=== PATIENT | male | born 1990 | race Caucasian/White ===

== ENCOUNTER → 2021-11-25 10:22 | Outpatient (CLI) | payer OTHER, SELFPAY ==
--- NOTE | ~2021-11-25 | CT_ITS ---
EXAMINATION: CT abdomen pelvis wo con DATE: 11/25/2021 10:35 INDICATION: Left flank and groin pain. Microscopic hematuria. TECHNIQUE: Computed tomography (CT) of the abdomen and pelvis was performed without intravenous contr ast. Automated exposure control and iterative reconstruction technique were employed. Exam dose: 458 .69 mGy-cm total exam DLP. COMPARISON: None. FINDINGS: The lung bases are clear of infiltrate or consolidation. Normal heart size. No pericardial or pleural effusion. 5.6 mm hypoattenuating lesion of the right hepatic lobe, likely a small cyst. Otherwise the liver, gallbladder, spleen, pancreas and bile ducts and pancreatic duct are unremarkabl e. Normal morphology of the adrenal glands. There is a 3 mm left ureter pelvic junction calculus, without hydronephrosis, with minimal left perin ephric stranding. No other urinary tract calculus. The urinary bladder is unremarkable. Normal caliber of the abdominal aorta. No intraperitoneal or retroperitoneal or pelvic mass lesion or adenopathy or ascites. The urinary bladder, prostate gland and seminal vesicles are unremarkable. Bilateral fat-containing inguinal hernias, mild, larger on the left. Included skeletal structures are unremarkable. IMPRESSION: 3 mm left ureteropelvic junction calculus with minimal left perinephric stranding, no hy dronephrosis Probable 5.6 mm right hepatic cyst Normal appendix Bilateral fat-containing hernias, left greater than right Reviewed, dictated and finalized at [facility]. Reviewed, dictated and finalized at location A. SPORTATION ASSOCIATE IMPRESSION: 3 mm left ureteropelvic junction calculus with minimal left perine phric stranding, no hydronephrosis Probable 5.6 mm right hepatic cyst Normal appendix Bilateral fat-containing hernias, left greater than right
== END ==
PROVIDERS: Visit Provider Family Medicine
DX: R31.9 Hematuria, unspecified (principal); R10.9 Unspecified abdominal pain; K44.9 Diaphragmatic hernia without obstruction or gangrene
CPT/HCPCS: 74176

== ENCOUNTER 2021-12-03 05:46 | Emergency (ER) | payer OTHER, SELFPAY ==
--- NOTE | ~2021-12-03 | XR_ITS ---
EXAMINATION: XR abdomen/kub 1V INDICATION: Left flank pain TECHNIQUE: Supine views of the abdomen were obtained on 2 radiographs. COMPARISON: CT, 11/25/2021 FINDINGS: There is a 3 mm calcification in the left pelvis at the expected location of the distal lef t ureter. A phlebolith is noted in the right pelvis. The bowel gas pattern is normal. The visualized lung bases are clear. IMPRESSION: 1. 3 mm left pelvic calcification, consistent with interval migration of the previously described lef t UPJ stone to the distal left ureter. Reviewed, dictated and finalized at location [facility]. E MANAGER IMPRESSION: 1. 3 mm left pelvic calcification, consistent with interval migration of the pr eviously described left UPJ stone to the distal left ureter.
[2021-12-03 05:54] VITALS: BP 150/95; PULSE 84; RESP 18; TEMP 36.7; O2SAT 96
--- NOTE | 2021-12-03 06:07 | ED.GENADULT ---
HPI - General Adult General Chief complaint: Abdominal Pain Stated complaint: flank pain Time Seen by Provider: 12/03/21 05:53 Source: RN notes reviewed History of Present Illness HPI narrative: Patient presents emergency department from home for left flank pain. Patient states that pain is located over the left flank and radiates around the left side the abdomen described as sharp and stabbing in nature. States that pain began proximally 1 week ago he was seen by his PCP and had a CT scan showing left-sided kidney stone he states he is was given hydrocodone but continues to have pain most of hydrocodone several hours ago he denies any fevers or chills notes some intermittent nausea denies any diarrhea Related Data Allergies Allergy/AdvReac Type Severity Reaction Status Date / Time No Known Allergies Allergy Verified 11/20/21 10:01 Review of Systems Review of Systems: Gen.: Denies fevers or chills ENT: Denies congestion Respiratory: Denies shortness of breath or cough CV: Denies chest pain or palpitations GI: See HPI denies burning, urgency, frequency or hematuria Musculoskeletal: Denies back pain or muscle pain Neuro: Denies numbness, tingling, weakness or focal weakness Skin: Denies rash Except as documented, all other systems reviewed and negative [facility] Past Medical History Medical History Ureteral calculi Family History Family History Mother Family history of hypercholesterolemia Depression Family history of glaucoma Family history of cardiovascular disease Father Hypertension Social History Social History Smoking status: Never smoker Alcohol intake: current Exam Narrative: APPEARANCE: No acute distress, nontoxic, resting in bed EYES: EOMI HEENT: Normocephalic, atraumatic, OMM RESPIRATORY: No respiratory distress Clear to auscultation bilaterally with no rhonchi wheezing or rales. CARDIOVASCULAR: Regular rate and rhythm without murmurs rubs or gallops. ABDOMINAL: Soft, nontender, nondistended, no rebound or guarding left flank tenderness MUSCULOSKELETAl: Moves all extremities. No clubbing, cyanosis or edema. NEURO: Awake and alert. Following commands, speech normal, no focal deficits SKIN:: Warm, dry. No rashes lesions or abrasions PSYCHIATRIC: Normal affect/mood, Course Course Emergency Course: Reviewed old records Discussed with Dr. Dimas presentation work-up at this time agrees with plan for discharge to follow-up as an outpatient Discussed with patient results of workup and diagnosis. Discussed need for follow-up with primary care, proper use of medication, and reasons to return to the emergency department. Patient understands and agrees to current treatment plan patient has Toradol and Worden at home Vital Signs Vital signs: Vital Signs Temperature 98.0 F 12/03/21 05:54 Pulse Rate 84 12/03/21 05:54 Respiratory Rate 18 12/03/21 05:54 Blood Pressure 150/95 H 12/03/21 05:54 Pulse Oximetry 96 12/03/21 05:54 Temperature 98.0 F 12/03/21 05:54 Pulse Rate 71 12/03/21 07:03 Respiratory Rate 18 12/03/21 07:03 Blood Pressure 135/94 H 12/03/21 07:03 Pulse Oximetry 99 12/03/21 07:03 Medical Decision Making Vital Signs Vital Signs: Vital Signs Temperature 98.0 F 12/03/21 05:54 Pulse Rate 84 12/03/21 05:54 Respiratory Rate 18 12/03/21 05:54 Blood Pressure 150/95 H 12/03/21 05:54 Pulse Oximetry 96 12/03/21 05:54 Temperature 98.0 F 12/03/21 05:54 Pulse Rate 71 12/03/21 07:03 Respiratory Rate 18 12/03/21 07:03 Blood Pressure 135/94 H 12/03/21 07:03 Pulse Oximetry 99 12/03/21 07:03 Lab Data Result diagrams: 12/03/21 06:07 12/03/21 06:07 Labs: Lab Results 12/03/21 12/03/21 12/03/21 Range/Units 06:07 06:07 06:20 WBC 6.
[2021-12-03 06:12] LABS: Basophils Absolute Auto 0.1 K/mm3 (0.0-0.1); Basophils Percent Auto 0.8 % (0.2-1.2); Eosinophils Absolute Auto 0.1 K/mm3 (0-0.3); Eosinophils Percent Auto 2.3 % (0-4.4); Hematocrit 41.6 % (42.0-52.0); Hemoglobin 14.5 g/dL (14.0-18.0); Immature Granulocyte Absolute 0.02 K/mm3 (0.00-0.031); Immature Granulocyte Percent A 0.3 % (0-0.5); Lymphocytes Absolute Auto 1.76 K/mm3 (0.9-3.2); Lymphocytes Percent Auto 28.7 % (18.3-44.2); Mean Corpuscular HGB Conc 34.9 g/dl (32-36); Mean Corpuscular Volume 89.1 fl (80-100); Mean Platelet Volume 9.6 fl (7.4-10.4); Monocytes Absolute Auto 0.5 K/mm3 (0.1-0.6); Monocytes Percent Auto 7.3 % (2.6-8.5); Neutrophils Absolute Auto 3.7 K/mm3 (1.3-6.7); Neutrophils Percent Auto 60.6 % (45.5-73.1); Platelet Count Result 227 k/mm3 (150-375); Red Blood Count 4.67 M/mm3 (4.6-6.20); Red Cell Distribution Width 12.4 % (11.5-14.5); White Blood Count 6.1 K/mm3 (4.5-10.0)
[2021-12-03] MEDS: SODIUM CHLORIDE 0.9% IV 1,000 ML 999 ML IV CONT (06:18)
[2021-12-03] MEDS: KETOROLAC 30 MG/ML VIAL (*BKC) IV PUSH (06:18)
[2021-12-03 06:43] LABS: Alanine Aminotransferase 29 U/L (4-50); Albumin Level 4.3 g/dL (3.5-5.1); Alkaline Phosphatase 55 U/L (38-126); Anion Gap 11 mmol/L (8-16); Aspartate Amino Transferase 24 U/L (17-59); Bilirubin,Total 0.7 mg/dL (0.2-1.3); Blood Urea Nitrogen 13 mg/dL (9-20); Calcium 9.6 mg/dL (8.4-10.2); Carbon Dioxide 24 mmol/L (22-30); Chloride 104 mmol/L (98-107); Estimated CRCL calculation 109 ml/min; Estimated Glomerular Filt Rate > 60; Glucose 104 mg/dL (65-110); Lipase 101 U/L (23-300); Potassium 4.2 mmol/L (3.4-5.0); Sodium 139 mmol/L (137-145)
[2021-12-03 06:47] LABS: Add Urine Microscopic? NO; Appearance Urine Clear (Clear); Bilirubin Urine Negative (Negative); Blood Urine Negative (Negative); Color Urine Yellow (Yellow); Glucose Urine UA Negative (Negative); Ketones Urine Negative (Negative); Leukocyte Esterase Ur Negative LEU/UL (Negative); Nitrate Urine Negative (Negative); Protein Urine Negative (Negative); Specific Grav Ur 1.017 (1.001-1.035); Urobilinogen Urine Negative mg/dL (<2.0)
[2021-12-03 07:03] VITALS: BP 135/94; PULSE 71; RESP 18; O2SAT 99
[2021-12-03] MEDS: TAMSULOSIN HCL 0.4 MG CAPSULE PO (07:27)
[2021-12-03 07:30] VITALS: BP 142/101; PULSE 80; RESP 16; O2SAT 97
== END 2021-12-03 07:30 | disposition home or self-care (01) ==
PROVIDERS: Emergency Provider Emergency Medicine; PCP Family Medicine
DX: N20.0 Calculus of kidney (principal)
CPT/HCPCS: 36415; 74018; 80053; 81003; 83690; 85025; 96361; 96374; 99284; A9270; J1885; J7030

== ENCOUNTER → 2021-12-11 14:12 | Outpatient (CLI) | payer OTHER, SELFPAY ==
--- NOTE | ~2021-12-11 | US_ITS ---
US renal BI 12/11/2021 14:29 Procedure: Realtime transabdominal ultrasound of the kidneys and bladder. Indication: Ureteral stone Comparison: No prior studies for comparison. Findings: Renal echotexture is normal bilaterally without hydronephrosis, contour deforming mass or r enal calculus. The right kidney measures 11.5 cm and left kidney measures 11.6 cm. Bladder within no rmal limits. Impression: 1: Unremarkable renal ultrasound. No stones, masses or hydronephrosis. Reviewed, dictated and finalized at location B. SHEAR OPERATOR Impression: 1: Unremarkable renal ultrasound. No stones, masses or hydronephrosis.
== END ==
PROVIDERS: PCP Family Medicine; Visit Provider Family Medicine
DX: N20.1 Calculus of ureter (principal)
CPT/HCPCS: 76775

== ENCOUNTER 2021-12-17 07:08 | Outpatient (CLI) | payer OTHER, SELFPAY ==
[2021-12-17 08:20] LABS: Basophils Absolute Auto 0.1 K/mm3 (0.0-0.1); Basophils Percent Auto 0.9 % (0.2-1.2); Eosinophils Absolute Auto 0.2 K/mm3 (0-0.3); Eosinophils Percent Auto 2.3 % (0-4.4); Hematocrit 42.4 % (42.0-52.0); Hemoglobin 14.7 g/dL (14.0-18.0); Immature Granulocyte Absolute 0.02 K/mm3 (0.00-0.031); Immature Granulocyte Percent A 0.3 % (0-0.5); Lymphocytes Absolute Auto 2.27 K/mm3 (0.9-3.2); Lymphocytes Percent Auto 34.8 % (18.3-44.2); Mean Corpuscular HGB Conc 34.7 g/dl (32-36); Mean Corpuscular Hemoglobin 31.2 pg (26-34); Mean Platelet Volume 9.6 fl (7.4-10.4); Monocytes Absolute Auto 0.4 K/mm3 (0.1-0.6); Monocytes Percent Auto 6.1 % (2.6-8.5); Neutrophils Absolute Auto 3.6 K/mm3 (1.3-6.7); Neutrophils Percent Auto 55.6 % (45.5-73.1); Platelet Count Result 277 k/mm3 (150-375); Red Blood Count 4.71 M/mm3 (4.6-6.20); White Blood Count 6.5 K/mm3 (4.5-10.0)
[2021-12-17 10:28] LABS: Alanine Aminotransferase 33 U/L (4-50); Albumin Level 4.6 g/dL (3.5-5.1); Alkaline Phosphatase 66 U/L (38-126); Anion Gap 10 mmol/L (8-16); Aspartate Amino Transferase 27 U/L (17-59); Bilirubin,Total 0.5 mg/dL (0.2-1.3); Blood Urea Nitrogen 14 mg/dL (9-20); Calcium 9.1 mg/dL (8.4-10.2); Carbon Dioxide 25 mmol/L (22-30); Chloride 104 mmol/L (98-107); Cholesterol 169 mg/dL (0-200); Estimated Glomerular Filt Rate > 60; Glucose 90 mg/dL (65-110); HDL Direct 40 mg/dL; Sodium 139 mmol/L (137-145); Triglycerides 174 mg/dL (<150)
[2021-12-17 10:40] LABS: LDL Cholesterol Direct 104 mg/dL
== END 2021-12-17 07:09 | disposition home or self-care (01) ==
PROVIDERS: PCP Family Medicine; Visit Provider Family Medicine
DX: Z00.00 Encounter for general adult medical examination without abnormal findings (principal); N20.1 Calculus of ureter
CPT/HCPCS: 36415; 80053; 80061; 85025

== ENCOUNTER 2022-01-01 02:24 | Emergency (ER) | payer OTHER, SELFPAY ==
--- NOTE | ~2022-01-01 | CT_ITS ---
EXAMINATION: CT abdomen pelvis wo con DATE: 01/01/2022 06:01 INDICATION: Left flank pain TECHNIQUE: Computed tomography (CT) of the abdomen and pelvis was performed without intravenous contr ast. Automated exposure control and iterative reconstruction technique were employed. The dose-length product was 528.39 mGy-cm. COMPARISON: None FINDINGS: Lung bases are clear. Heart size is normal. No pericardial or pleural effusion. Diffuse hepatic steat osis. Gallbladder, pancreas, spleen, bilateral adrenal glands and right kidney are normal. 2-3 mm obs tructing distal left ureteral stone approximately 1.5 cm from the ureterovesicular junction with mild left hydroureteronephrosis. No other urolithiasis on either the left or right. Bladder is decompress ed. Bowels including the appendix are normal. No pathologically enlarged abdominal or pelvic lymphade nopathy. Small right and moderate-sized left fat-containing inguinal hernias. No free intraperitoneal gas or fluid. Mild bilateral hip osteoarthritis. Bone island at the right pubic body. IMPRESSION: 1. 2-3 mm distal left ureteral stone with mild left hydroureteronephrosis. 2. Diffuse hepatic steatosis. Reviewed, dictated and finalized at location A.
[2022-01-01 05:24] LABS: Basophils Percent Auto 0.4 % (0.2-1.2); Eosinophils Absolute Auto 0.1 K/mm3 (0-0.3); Hematocrit 40.8 % (42.0-52.0); Hemoglobin 14.3 g/dL (14.0-18.0); Immature Granulocyte Absolute 0.04 K/mm3 (0.00-0.031); Immature Granulocyte Percent A 0.4 % (0-0.5); Lymphocytes Absolute Auto 1.79 K/mm3 (0.9-3.2); Lymphocytes Percent Auto 16.6 % (18.3-44.2); Mean Corpuscular Hemoglobin 31.3 pg (26-34); Mean Corpuscular Volume 89.3 fl (80-100); Mean Platelet Volume 10.3 fl (7.4-10.4); Monocytes Absolute Auto 0.8 K/mm3 (0.1-0.6); Monocytes Percent Auto 7.8 % (2.6-8.5); Neutrophils Absolute Auto 7.9 K/mm3 (1.3-6.7); Neutrophils Percent Auto 73.8 % (45.5-73.1); Platelet Count Result 195 k/mm3 (150-375); Red Blood Count 4.57 M/mm3 (4.6-6.20); Red Cell Distribution Width 11.9 % (11.5-14.5); White Blood Count 10.8 K/mm3 (4.5-10.0)
[2022-01-01 05:25] LABS: Add Urine Microscopic? YES; Appearance Urine Clear (Clear); Bilirubin Urine Negative (Negative); Blood Urine Negative (Negative); Color Urine Yellow (Yellow); Glucose Urine UA Negative (Negative); Ketones Urine Negative (Negative); Leukocyte Esterase Ur Negative LEU/UL (NEGATIVE); Mucus Urine Rare /lpf; Nitrate Urine Negative (Negative); Protein Urine Negative (Negative); Specific Grav Ur 1.029 (1.001-1.035); Urobilinogen Urine Negative mg/dL (<2.0); WBC Urine 0-3 /hpf (0-3)
[2022-01-01 05:52] LABS: Alanine Aminotransferase 29 U/L (4-50); Albumin Level 4.4 g/dL (3.5-5.1); Alkaline Phosphatase 69 U/L (38-126); Anion Gap 9 mmol/L (8-16); Aspartate Amino Transferase 26 U/L (17-59); Bilirubin,Total 0.5 mg/dL (0.2-1.3); Blood Urea Nitrogen 17 mg/dL (9-20); Calcium 8.8 mg/dL (8.4-10.2); Carbon Dioxide 26 mmol/L (22-30); Chloride 103 mmol/L (98-107); Estimated Glomerular Filt Rate > 60; Glucose 116 mg/dL (65-110); Potassium 3.5 mmol/L (3.4-5.0); Sodium 138 mmol/L (137-145)
== END 2022-01-01 06:43 | disposition home or self-care (01) ==
PROVIDERS: PCP Family Medicine
DX: N13.2 Hydronephrosis with renal and ureteral calculous obstruction (principal); K76.0 Fatty (change of) liver, not elsewhere classified
CPT/HCPCS: 36415; 74176; 80053; 81001; 85025; 86803; 96374; 96375; 99284; A9270; J1170; J2405

== ENCOUNTER 2022-01-04 08:48 | Emergency (ER) | payer OTHER, SELFPAY ==
--- NOTE | ~2022-01-04 | XR_ITS ---
XR abdomen/kub 1V 01/04/2022 09:23 INDICATION: Left flank pain TECHNIQUE: KUB COMPARISON: CT dated 01/01/2022Z FINDINGS: Bowel gas pattern is normal. There is no evidence of free air, mass, organomegaly, ascites or obstruction. There is a 3 mm left ureteral stone near the UVJ without significant change to posit ion allowing for differences of technique. The bones appear intact. IMPRESSION: 1: No significant change to position of distal left ureteral stone measuring approximately 3 mm. Reviewed, dictated and finalized at location A. IMPRESSION: 1: No significant change to position of distal left ureteral stone measuring ap proximately 3 mm.
[2022-01-04 08:55] VITALS: BP 153/99; PULSE 98; RESP 16; TEMP 36.4; O2SAT 99
[2022-01-04 09:05] VITALS: BP 153/99; PULSE 98; RESP 16; TEMP 36.4; O2SAT 99
--- NOTE | 2022-01-04 09:24 | ED.MALEGU ---
HPI - Male Genitourinary General Chief complaint: Urogenital-Male Stated complaint: kidney stone Time Seen by Provider: 01/04/22 09:01 Source: patient Mode of arrival: ambulatory Limitations: no limitations History of Present Illness HPI Narrative: 31 year old male presents today with complaints of left flank pain that he is not able to control at home. Currently pain is tolerable. Patient seen here on 01/01 and diagnosed with a kidney stone. Patient has been taking Ararat at home and states when he has the pain it only works for about 1 hour. He is taking flomax as prescribed. He has been unable to follow up with urology at this point. Denies urinary symptoms, testicular pain, or seeing blood in her urine. Related Data Allergies Allergy/AdvReac Type Severity Reaction Status Date / Time No Known Allergies Allergy Verified 12/17/21 08:59 Review of Systems Review of Systems: CONSTITUTIONAL: Denies fever, chills, or sweats. EYES: Denies visual changes, redness, or discharge. ENT: Denies rhinorrhea, congestion, sore throat, or otalgia. CARDIOVASCULAR: Denies chest pain, palpitations, or edema. RESPIRATORY: Denies cough or dyspnea. GASTROINTESTINAL: Denies abdominal pain, nausea, vomiting, or diarrhea. GENITOURINARY: Denies dysuria or hematuria. SKIN: Denies rash or itching. MUSCULOSKELETAL: Flank pain. Denies joint pain or myalgia. NEUROLOGIC: Denies headache, numbness, dizziness, or weakness. PSYCHIATRIC: Denies anxiety or depression. PMFSH Past Medical History Medical History Contact with and (suspected) exposure to lead (04/12/18) Ureteral calculi Family History Family History Mother Family history of hypercholesterolemia Depression Family history of glaucoma Family history of cardiovascular disease Father Hypertension Social History Social History Smoking status: Never smoker Second hand tobacco smoke exposure: No Alcohol intake: current Substance use: never Exam Narrative: GENERAL: Well-appearing, well-nourished, and in no acute distress. HEAD: Normocephalic, atraumatic. EYES: PERRLA and EOMI. ENT: Nares clear, no rhinorrhea or epistaxis. Mucous membranes moist. Oropharynx without tonsillar hypertrophy exudate or other lesions. Bilateral TMs pearly dumont nonbulging NECK: Supple. No adenopathy or masses. No carotid bruits or JVD CHEST: Clear to auscultation. No respiratory distress. No wheezes rales or rhonchi HEART: Regular rate and rhythm. No murmur heard. Normal peripheral pulses. ABDOMEN: Soft, nontender, nondistended, normal active bowel sounds. EXTREMITIES: Normal range of motion. No edema. SKIN: Warm, dry, no rash. NEURO: No focal deficits. Alert and oriented x3. PSYCH: Normal mood and affect. Course Course Emergency Course: Urology consulted. Mae HAM add Toradol. Will follow up with patient. Plan for possible surgery Tuesday or Tuesday. Okay for discharge home. Patient updated on plan of care. In agreement with plan. Information for urology given to patient and instructed to call tomorrow if he has not been notified by them. Vital Signs Vital signs: Vital Signs Temperature 36.4 C 01/04/22 08:55 Pulse Rate 98 01/04/22 08:55 Respiratory Rate 16 01/04/22 08:55 Blood Pressure 153/99 H 01/04/22 08:55 Pulse Oximetry 99 01/04/22 08:55 Temperature 36.4 C 01/04/22 09:05 Pulse Rate 78 01/04/22 12:32 Respiratory Rate 15 01/04/22 12:32 Blood Pressure 136/90 01/04/22 12:32 Pulse Oximetry 100 01/04/22 12:32 MDM - Male Genitourinary MDM Narrative Medical decision making narrative: HPI as above. Patient without any infection to urine. Pain at discharge tolerable. Patient will be discharged home with plan follow-up with urology or return new or worsening symptoms. Shaka
[2022-01-04] MEDS: SODIUM CHLORIDE 0.9% IV 1,000 ML 999 ML IV CONT (09:35)
[2022-01-04 09:50] LABS: Basophils Absolute Auto 0.1 K/mm3 (0.0-0.1); Basophils Percent Auto 0.6 % (0.2-1.2); Eosinophils Absolute Auto 0.1 K/mm3 (0-0.3); Eosinophils Percent Auto 0.6 % (0-4.4); Hematocrit 40.7 % (42.0-52.0); Hemoglobin 14.5 g/dL (14.0-18.0); Immature Granulocyte Absolute 0.03 K/mm3 (0.00-0.031); Immature Granulocyte Percent A 0.4 % (0-0.5); Lymphocytes Absolute Auto 1.51 K/mm3 (0.9-3.2); Lymphocytes Percent Auto 18.3 % (18.3-44.2); Mean Corpuscular HGB Conc 35.6 g/dl (32-36); Mean Corpuscular Hemoglobin 31.1 pg (26-34); Mean Corpuscular Volume 87.3 fl (80-100); Mean Platelet Volume 9.9 fl (7.4-10.4); Monocytes Absolute Auto 0.8 K/mm3 (0.1-0.6); Monocytes Percent Auto 9.2 % (2.6-8.5); Neutrophils Absolute Auto 5.8 K/mm3 (1.3-6.7); Neutrophils Percent Auto 70.9 % (45.5-73.1); Platelet Count Result 214 k/mm3 (150-375); Red Blood Count 4.66 M/mm3 (4.6-6.20); Red Cell Distribution Width 11.8 % (11.5-14.5); White Blood Count 8.2 K/mm3 (4.5-10.0)
[2022-01-04 09:51] LABS: Add Urine Microscopic? YES; Appearance Urine Clear (Clear); Bilirubin Urine Negative (Negative); Blood Urine Negative (Negative); Color Urine Yellow (Yellow); Glucose Urine UA Negative (Negative); Ketones Urine 2+ mg/dL (Negative); Leukocyte Esterase Ur Negative LEU/UL (Negative); Mucus Urine Rare /lpf; Nitrate Urine Negative (Negative); Protein Urine Negative (Negative); RBC Urine 0-2 /hpf (0-2); Specific Grav Ur 1.024 (1.001-1.035); Urobilinogen Urine Negative mg/dL (<2.0); WBC Urine 0-3 /hpf
[2022-01-04 10:03] LABS: Alanine Aminotransferase 19 U/L (4-50); Albumin Level 4.6 g/dL (3.5-5.1); Alkaline Phosphatase 73 U/L (38-126); Anion Gap 9 mmol/L (8-16); Aspartate Amino Transferase 23 U/L (17-59); Bilirubin,Total 0.9 mg/dL (0.2-1.3); Blood Urea Nitrogen 11 mg/dL (9-20); Calcium 9.4 mg/dL (8.4-10.2); Carbon Dioxide 30 mmol/L (22-30); Chloride 96 mmol/L (98-107); Estimated CRCL calculation 74 ml/min; Estimated Glomerular Filt Rate > 60; Glucose 103 mg/dL (65-110); Potassium 3.7 mmol/L (3.4-5.0); Sodium 135 mmol/L (137-145)
[2022-01-04] MEDS: MORPHINE SULFATE (*CRX) 2 MG/ML INJ IV PUSH (10:42)
[2022-01-04 11:10] VITALS: BP 148/97; PULSE 84; RESP 18; O2SAT 100
[2022-01-04] MEDS: KETOROLAC 30 MG/ML VIAL (*BKC) IV PUSH (11:58)
[2022-01-04 12:32] VITALS: BP 136/90; PULSE 78; RESP 15; O2SAT 100
== END 2022-01-04 12:43 | disposition home or self-care (01) ==
PROVIDERS: Emergency Provider Nurse Practitioner Family; PCP Family Medicine
DX: N20.1 Calculus of ureter (principal); Z87.442 Personal history of urinary calculi
CPT/HCPCS: 36415; 74018; 80053; 81001; 85025; 87086; 96361; 96374; 96375; 99284; J1885; J2270; J7030

== ENCOUNTER → 2022-01-06 07:38 | Outpatient (CLI) | payer OTHER, SELFPAY ==
[2022-01-06 11:51] LABS: SARS-CoV-2 RNA PCR Negative
== END ==
PROVIDERS: PCP Family Medicine; Visit Provider Urology
DX: Z01.812 Encounter for preprocedural laboratory examination (principal); Z20.822 Contact with and (suspected) exposure to COVID-19
CPT/HCPCS: C9803; U0003; U0005

== ENCOUNTER 2022-01-07 00:59 | Day surgery (SDC) | payer OTHER, SELFPAY ==
[2022-01-06 09:20] VITALS: BMI 28.1
--- NOTE | 2022-01-06 09:26 | PC.NURSE ---
Report to the Outpatient Waiting Room, entrance under the green pavilion located off [facility], at time 1015 on date 01/07/22. OR Time: 1215. - You and your visitor will be asked a series of questions to screen for COVID 19 for your protection. - A mask is required within the hospital. One visitor will be allowed to accompany the patient into the hospital. Patients visitor will be instructed to remain with patient at all times or leave the building. We will allow the visitor to come back to the postoperative area when patient is ready. Preoperative COVID Testing Requirements: COVID TEST 01/06 AT 0830 No COVID Test needed if: (proof is required; if not received patient will have Rapid Test prior to entry) - Patient has received COVID Vaccine at least 14 days prior to procedure date or - Patient has positive COVID test result within last 90 days of surgery date. COVID Test needed if above criteria is not met If not COVID vaccinated a COVID test must be conducted within 72 hours of surgery and patient is asked to isolate self from time of testing until procedure. You will go to the [facility] for your COVID testing. The [facility] is located at the corner of [address] [facility]. You will only be called if COVID results are positive and your surgeon may reschedule your elective surgery date. Patients may have clear liquids (water, carbonated beverages, clear teas, apple juice) until 3 hours prior to surgery with a maximum of 20 ounces. - No food from midnight until time of surgery Take the following medications with a SIP of water the morning of surgery: PAIN PILL (IF NEEDED) Medications to discontinue per physician: N/A Date to take last dose: N/A Please no make-up, nail danish, hairspray, perfume, deodorant, or body powder the day of surgery. No jewelry (including any body piercings) or valuables the day of surgery, leave them at home. Please take a shower or bath the night before, or the morning of, surgery with an antibacterial soap. Wear comfortable, loose fitting clothing. - Jewelry must be removed prior to entering the operating room. Rings and piercings that are not removed may be cut off. - The hospital will not accept responsibility for valuables. - Please leave all valuables, including medications, at home the day of surgery. If you are going home after surgery, a licensed tank driver must drive you home. - NO public transportation without another adult. - We recommend that an adult stay with you for 24 hours following discharge. - We also recommend that you do not drive, make important decision, drink alcoholic beverages, or take any drugs that were not prescribed by your health care provider for at least 24 hours after your discharge time. Follow any additional instructions given to you from your surgeon. Telephone instructions given to CARMEN BEE and asked if any additional questions and then verbalized understanding. Patient advised to call surgeon office or pre surgery nurse liaison [phone] if any additional questions.
[2022-01-07] VITALS (7 sets, daily range): BP systolic 123–142; BP diastolic 80–91; PULSE 50–62; RESP 12–16; TEMP 36.1–36.7; O2SAT 95–99
--- NOTE | ~2022-01-07 | XR_ITS ---
EXAMINATION: XR fluoroscopy no charge EXAM DATE: 01/07/2022 12:23 INDICATION: Left-sided stone extraction. TECHNIQUE: Fluoroscopy used during left UPJ stone extraction performed by Dr. Dajuan Dimas MD. Radiologist was not present for the imaging or procedure. Total fluoroscopic time of 3 seconds T he DAP for this procedure was 0.34 mGym2. A total of 4 images sent to PACS from the exam. Correlatio n is made to KUB 01/04/2022. FINDINGS: Images demonstrate cystoscopy scope. Correlate with procedure note. IMPRESSION: Fluoroscopy used during left UVJ stone extraction. Reviewed, dictated and finalized at location G.
--- NOTE | 2022-01-07 06:53 | WPDHPUPDATE1 ---
History and Physical Update Update Date/Time: 01/07/22 06:53 History and Physical has been reviewed, including an updated exam of the patient. There are NO changes in the patient's condition. Risks, benefits, and alternatives have been discussed and questions answered. Patient agrees to proceed with procedure.
--- NOTE | 2022-01-07 06:54 | WPDHPUPDATE1 ---
History and Physical Update Update Date/Time: 01/07/22 06:54 History and Physical has been reviewed, including an updated exam of the patient. There are NO changes in the patient's condition. Risks, benefits, and alternatives have been discussed and questions answered. Patient agrees to proceed with procedure.
--- NOTE | 2022-01-07 10:59 | WPDANESEPPF ---
Anes - Initial Pre Proc Eval Procedure: Operation Date: 01/07/22 12:15 Proposed Procedures p Cystoscopy, Left Ureteroscopy, Left Retrograde Pyelogram, Left Stone Extraction, Possible Left Stent Placement, - Dajuan Dimas MD s Possible Holmium Laser Procedure - Dajuan Dimas MD Date/Time: 01/07/22 10:59 Surgeon: Dajuan Dimas MD Pre Op Diagnosis: left ureteral stone Patient Data Age: 31 Gender: M Height: 1.7 m Weight: 81.65 kg Allergies Allergy/AdvReac Type Severity Reaction Status Date / Time No Known Allergies Allergy Verified 01/07/22 10:46 Home Medications Medication Instructions Recorded Confirmed Type ketorolac 10 mg PO Q6H PRN 5 Days #20 tablet 01/04/22 01/07/22 Rx Patient hx anesthesia problems: none Family hx anesthesia problems: none Results Review: All pre-operative results and documents have been reviewed as part of the pre-operative evaluation. [facility] Past Medical History Medical History Contact with and (suspected) exposure to lead (04/12/18) Ureteral calculi Family History Family History Mother Family history of hypercholesterolemia Depression Family history of glaucoma Family history of cardiovascular disease Father Hypertension Social History Social History Smoking status: Never smoker Second hand tobacco smoke exposure: No Alcohol intake: current Alcohol use details: VERY RARE Substance use: never Substance use type: does not use Living arrangements: with family Spiritual care concerns: No Anes - Eval Final PreProcedure Day of Procedure 01/07/22 10:59 Heart: regular rate and rhythm Lungs: clear to auscultation Airway: Mallampati scale class II Neurological: alert and oriented Last oral intake: >/= 8 hours Emergent: no Anesthetic plan: proceed Anesthesia type and monitoring: general GIVS and standard monitoring Results Review: All pre-operative results and documents have been reviewed as part of the pre-operative evaluation. Informed Consent: The patient's anesthetic plan and its attendant risks and benefits were discussed with the patient/family/POA. Questions were solicited and answers provided to the satisfaction of the patient/family/POA.
[2022-01-07] MEDS: LACTATED RINGERS 1,000 ML 30 ML IV CONT (11:10)
[2022-01-07] MEDS: ceFAZolin 2 GM/D5W 50 ML 2 GM/50 ML BAG IVPB (11:59)
--- NOTE | 2022-01-07 12:20 | W.PM.PROC2 ---
Procedure Note - Detailed Date of Procedure 01/07/22 Pre-op Diagnosis Left ureteral stone Post-op Diagnosis Same Procedure Performed Cystoscopy, left ureteroscopy with stone extraction Surgeon Dajuan Dimas MD Anesthesia General Description of Procedure The patient was brought to the operative suite where he is prepped and draped in a routine sterile fashion while in the dorsal lithotomy position after the uneventful induction of a general LMA anesthetic. A 19F rigid cystoscope was placed in the bladder. There are no urethral strictures. His prostatic urethra measures, approximately, 1.0cm with no median lobe enlargement. The bladder mucosa was endoscopically normal without hyperemia or neoplasm. There was a single, orthotopic ureteral orifice bilaterally. A 0.035 glidewire was advanced into the left renal pelvis under fluoroscopy. Ureteroscopy was undertaken with a short, tapered, semi-rigid ureteroscope and the stone was extracted with ease using a 1.9F Escape disposable stone basket. Due to the ease of this manipulation I opted not to place a ureteral stent. The patient's bladder was emptied and was taken to the recovery room having tolerated this procedure well. Estimated Blood Loss 0 Drains No Packing No Pathology Yes Complications No immediate complications Condition Stable Disposition PACU
== END 2022-01-07 14:00 | disposition home or self-care (01) ==
PROVIDERS: PCP Family Medicine; Visit Provider Urology
PROC: (CPT 52352; principal; 2022-01-07 12:15)
DX: N20.1 Calculus of ureter (principal)
CPT/HCPCS: 52352; 82365; 88300; A9270; C1769; C9803; J0690; J1100; J2250; J2405; J2704; J3010; J7120; U0003; U0005

== ENCOUNTER 2022-06-07 17:24 | Emergency (ER) | payer OTHER, SELFPAY ==
--- NOTE | 2022-06-07 17:29 | ED.URI ---
HPI - URI/Sore Throat General Chief Complaint: Upper Respiratory Infection Stated Complaint: ear pain, cough,sore throat Time Seen by Provider: 06/07/22 17:41 Source: patient and RN notes reviewed Mode of arrival: ambulatory Limitations: no limitations History of Present Illness HPI Narrative: 32-year-old male presents concern for sore throat, cough. He reports symptoms started on Tuesday and Tuesday. Reports pain is radiating from throat to the ears. He denies headache, nasal congestion. Reports rhinorrhea. He reports cough, denies shortness of breath. He reports his infant daughter had an illness last week, she is better and did not require antibiotics. He denies taking any [id number] medications for his symptoms. Reports his sore throat is worse in the morning. MD elicited complaint: cough and sore throat Related Data Allergies Allergy/AdvReac Type Severity Reaction Status Date / Time No Known Allergies Allergy Verified 06/07/22 17:32 Review of Systems Review of Systems: CONSTITUTIONAL: Denies malaise, chills, sweats, or fever. EYES: Denies visual changes, redness, or discharge. ENT: Reports rhinorrhea, otalgia and sore throat. Denies congestion, sinus pain CARDIOVASCULAR: Denies chest pain, palpitations, or edema. RESPIRATORY: Reports cough. Denies dyspnea. GASTROINTESTINAL: Denies abdominal pain, nausea, vomiting, diarrhea SKIN: Denies rash or itching. MUSCULOSKELETAL: Denies myalgia. NEUROLOGIC: Denies headache. All systems reviewed & are unremarkable except as noted in HPI and below [facility] Past Medical History Medical History (Updated 06/07/22 @ 17:58 by Gali Jones NP) Abnormal CT scan, pelvis Contact with and (suspected) exposure to lead (04/12/18) Left ureteral stone Surgical History Surgical History (Updated 01/26/22 @ 09:32 by Laine Lam MD) History of extraction of renal calculus 3.24.22 L UVJ stone extraction Family History Family History Mother Family history of hypercholesterolemia Depression Family history of glaucoma Family history of cardiovascular disease Father Hypertension Social History Social History Smoking status: Never smoker Second hand tobacco smoke exposure: No Alcohol intake: current Alcohol use details: VERY RARE Substance use: never Substance use type: does not use Spiritual care concerns: No Comments At time of signature, agree with nursing past medical, surgical, social and family history. There is no relevant family history pertinent to the presenting complaint Exam Narrative: GENERAL: Well-appearing, well-nourished, and in no acute distress. HEAD: Normocephalic EYES: PERRLA, conjunctivae clear ENT: Nares clear, clear discharge. Mucous membranes moist. TM pearly dumont with dull light reflex bilaterally; no tragal tenderness. Oropharynx erythematous without lesions. Tonsils not enlarged and without exudate, no drooling, no hoarseness, no trismus, uvula midline. NECK: Supple. No lymphadenopathy CHEST: Clear to auscultation, breath sounds equal. No wheezing, rhonchi, rales, or stridor. No respiratory distress, speaks in full sentences. HEART: Regular rate and rhythm. No murmur heard. SKIN: Warm, dry, no rash. NEURO: Alert and oriented x3. PSYCH: Normal mood and affect Course Course Emergency Course: Patient is aware of diagnosis, understands and agrees to treatment plan. Anticipatory guidance given. Patient agrees to follow-up as directed and is aware of reasons to seek care at the emergency department. Portions of this record may have been created with voice recognition software Level of Care: Express Care Visit Vital Signs Vital signs: Reviewed. MDM - URI/Sore Throat MDM Narrative Medical decision making narrative: Differential diagnosis considered: Mart virus, strep pharyngitis, allergic rhinitis, upper
[2022-06-07 17:40] VITALS: BP 140/95; PULSE 82; RESP 16; TEMP 37.4; O2SAT 100
== END 2022-06-07 18:03 | disposition home or self-care (01) ==
PROVIDERS: Emergency Provider Nurse Practitioner; PCP Family Medicine
DX: J06.9 Acute upper respiratory infection, unspecified (principal)
CPT/HCPCS: 87081; 87880; 99213; G0463